=== PATIENT | female | born 1960 | race African-American/Black ===

== ENCOUNTER 2019-01-27 18:50 | Emergency (ER) | payer MEDICARE ==
[~2019-01-27] VITALS: Ht 165.1 cm; Wt 71.0 kg
[2019-01-27 20:33] VITALS: BP 112/66
== END 2019-01-27 20:37 | disposition home or self-care (01) ==
LOC: ER 18:50
DX: R53.1 Weakness (principal)
CPT/HCPCS: 99283

== ENCOUNTER 2022-05-07 11:47 | Emergency (ER) | payer MEDICARE, MEDICAID ==
[~2022-05-07] VITALS: Ht 170.2 cm; Wt 65.0 kg
[2022-05-07] MEDS ORDERED: ACETAMINOPHEN 500MG TABLET PO ONE (12:15)
[2022-05-07 14:39] VITALS: BP 144/85
== END 2022-05-07 14:54 | disposition home or self-care (01) ==
LOC: ER 12:28
DX: M25.512 Pain in left shoulder (principal); M25.511 Pain in right shoulder; I10 Essential (primary) hypertension; Z98.890 Other specified postprocedural states
CPT/HCPCS: 73030; 82962; 93005; 99283